=== PATIENT | female | born 1965 | race Caucasian/White ===

== ENCOUNTER 2024-02-29 08:54 | Emergency (ER) | payer OTHER ==
[2024-02-29 09:45] LABS: #Basophils 0.05 10x3/uL (0.0-0.2); #Eosinphils 0.37 10x3/uL (0.0-0.5); #Monocytes 0.52 10x3/uL (0.0-1.1); %Basophils 0.6 % (0.0-2.0); %Eosinophils 4.4 % (0.0-6.0); %Lymphocytes 29.2 % (18.0-47.0); %Monocytes 6.2 % (0.0-10.0); %Neutrophils 59.4 % (40.0-75.0); Hematocrit 34.5 % (34.9-44.5); Hemoglobin 10.7 g/dL (12.0-15.5); Mean Corpuscular Hemoglobin 29.8 pg (27.0-33.0); Mean Corpuscular Volume 96.1 fL (81.6-98.3); Mean Platelet Volume 8.6 fL (7.4-10.4); Platelet Count 291 10x3/uL (150-450); RBC Distribution Width 15.5 % (11.5-14.5); Red Blood Cell (RBC) Count 3.59 10x6/uL (3.90-5.03); White Blood Cell (WBC) Count 8.4 10x3/uL (3.5-10.5)
[2024-02-29 10:03] LABS: ALT (SGPT) 17 U/L (8-55); AST (SGOT) 20 U/L (5-34); Acetaminophen Less than 10 mcg/mL (Less than 10); Albumin 3.6 g/dL (3.5-5.0); Alcohol Less than 10.0 mg/dL (Less than 10); Alkaline Phosphatase 52 U/L (40-110); Anion Gap 13 mmol/L (10-20); BUN (Urea Nitrogen) 20 mg/dL (9.8-20.1); Bilirubin, Total 0.2 mg/dL (0.2-1.2); CK (CPK) 185 U/L (29-168); Calc. Creatinine Clearance 0 mL/min (70-130); Calcium 8.5 mg/dL (7.8-10.44); Carbon Dioxide 25 mmol/L (22-29); Chloride 106 mmol/L (98-107); Estimated GFR 85; Globulin 2.4 g/dL (2.4-3.5); Glucose 117 mg/dL (70-105); Potassium 3.7 mmol/L (3.5-5.1); Sodium 140 mmol/L (136-145)
[2024-02-29 11:03] LABS: Bilirubin 1+ (Negative); Blood, Urine Negative (Negative); Clarity Cloudy (Clear); Glucose, Urine (Dipstick) Normal (Negative); Ketone, Urine Negative (Negative); Leukocyte Negative (Negative); Nitrite Negative (Negative); Protein, Urine (Dipstick) 30 mg/dl (Neg-Trace); Specific Gravity, Urine 1.025 (1.005-1.030); Urobilinogen Normal mg/dL (Less than 2)
[2024-02-29 11:11] LABS: Amphetamine Not Detected (NotDetected); Barbiturates Screen Not Detected (NotDetected); Benzodiazepine Screen Not Detected (NotDetected); Cocaine Metabolite Screen Not Detected (NotDetected); Methadone Not Detected (NotDetected); Methamphetamine Not Detected (NotDetected); Opiate Screen Not Detected (NotDetected); Oxycodone Screen Not Detected (NotDetected); Phencyclidine (PCP) Not Detected (NotDetected); THC/Cannabinoid Screen Not Detected (NotDetected); Tricyclic Screen Not Detected (NotDetected)
[2024-02-29 11:25] LABS: Bacteria/HPF Rare-Few HPF (None Seen); CAUTI Indications for Culture Pelvic or flank pain; RBC/HPF None Seen HPF (0-3)
[2024-02-29 11:26] LABS: Calcium Oxalate Crystals 4+ HPF (None Seen)
[2024-02-29 11:27] LABS: Urine Culture Reflex No No
[2024-02-29] MEDS ORDERED: Ibuprofen 200 MG TAB ONE (14:25)
== END 2024-02-29 12:00 | disposition home or self-care (01) ==
LOC: CSHERS 08:54
DX: R41.0 Disorientation, unspecified (principal); R40.0 Somnolence
CPT/HCPCS: 36415; 70450; 80053; 80306; 80307; 81001; 82140; 82550; 85025; 93005

== ENCOUNTER 2024-02-29 14:11 | Inpatient (IN) | payer OTHER ==
[2024-02-29 16:17] LABS: Influenza A by NAA Not Detected (NotDetected); Influenza B by NAA Not Detected (NotDetected); SARS-CoV-2 NAA Rapid Test Not Detected (NotDetected)
[2024-02-29] MEDS ORDERED: Calcium Carbonate 500 MG ChewTAB PO PRN (19:22)
[2024-02-29] MEDS ORDERED: Senokot S 8.6-50 MG TAB PO PRN (19:22)
[2024-02-29] MEDS ORDERED: Acetaminophen 650 MG Suppository PR PRN (19:22)
[2024-02-29] MEDS ORDERED: Ondansetron PF 4 MG/2 ML Vial IVP PRN (19:22)
[2024-02-29] MEDS ORDERED: Lorazepam 2 MG/ML VIAL SLOW IVP PRN (19:25)
[2024-02-29] MEDS ORDERED: cefTRIAXone (ROCEPHIN) 2 GM VIAL ONE (21:30)
[2024-02-29] MEDS ORDERED: Magnesium Sulfate/D5W 1 GM/100 ML BAG ONE (21:30)
[2024-02-29] MEDS ORDERED: Potassium Chloride 20 MEQ TAB ONE (21:30)
[2024-02-29] MEDS: Magnesium Sulfate/D5W 1 GM/100 ML BAG IVPB SCH (22:10)
[2024-02-29] MEDS: Potassium Chloride 20 MEQ TAB PO SCH (22:13)
[2024-02-29] MEDS ORDERED: chlordiazePOXIDE HCl 5 MG CAP ONE (22:26)
[2024-02-29] MEDS ORDERED: Gabapentin 300 MG CAP ONE (22:27)
[2024-02-29] MEDS: chlordiazePOXIDE HCl 5 MG CAP PO SCH (22:50)
[2024-02-29] MEDS: Gabapentin 300 MG CAP PO SCH (22:53)
[2024-02-29] MEDS: cefTRIAXone\\ROCEPHIN 2 GM in Sodium Chloride 0.9% 100 ML IVPB SCH (23:10)
[2024-02-29] MEDS: Multivitamins, Adult 10 ML, Folic Acid 1 MG, Thiamine HCl 100 MG in Dextrose 5 %-0.45 %... IV SCH (23:35)
[2024-03-01 05:38] LABS: #Basophils 0.05 10x3/uL (0.0-0.2); #Eosinphils 0.31 10x3/uL (0.0-0.5); %Basophils 0.7 % (0.0-2.0); %Eosinophils 4.4 % (0.0-6.0); %Lymphocytes 35.7 % (18.0-47.0); %Monocytes 8.4 % (0.0-10.0); %Neutrophils 50.7 % (40.0-75.0); Hemoglobin 10.1 g/dL (12.0-15.5); Mean Corpuscular HGB CONC 30.6 g/dL (32.0-36.0); Mean Corpuscular Hemoglobin 29.2 pg (27.0-33.0); Mean Corpuscular Volume 95.4 fL (81.6-98.3); Mean Platelet Volume 8.5 fL (7.4-10.4); Platelet Count 244 10x3/uL (150-450); RBC Distribution Width 15.5 % (11.5-14.5); Red Blood Cell (RBC) Count 3.46 10x6/uL (3.90-5.03); White Blood Cell (WBC) Count 7.1 10x3/uL (3.5-10.5)
[2024-03-01 05:53] LABS: ALT (SGPT) 16 U/L (8-55); AST (SGOT) 18 U/L (5-34); Alkaline Phosphatase 39 U/L (40-110); Anion Gap 8 mmol/L (10-20); BUN (Urea Nitrogen) 14 mg/dL (9.8-20.1); Bilirubin, Total 0.2 mg/dL (0.2-1.2); CK (CPK) 85 U/L (29-168); Calc. Creatinine Clearance 0 mL/min (70-130); Calcium 7.9 mg/dL (7.8-10.44); Carbon Dioxide 26 mmol/L (22-29); Chloride 109 mmol/L (98-107); Estimated GFR 103; Globulin 2.2 g/dL (2.4-3.5); Glucose 104 mg/dL (70-105); Magnesium 1.9 mg/dL (1.6-2.6); Potassium 3.9 mmol/L (3.5-5.1); Protein, Total 5.2 g/dL (6.0-8.3); Sodium 139 mmol/L (136-145)
[2024-03-01] MEDS: Pantoprazole DR 40 MG TAB PO SCH (10:00)
[2024-03-01] MEDS: Enoxaparin 40 MG (0.4 mL) SYRINGE SC SCH (10:00)
[2024-03-01] MEDS: Magnesium 2 GM/50 ML(in water) 2 GM in Premix 1 BAG IVPB SCH (10:00)
[2024-03-01] MEDS: Escitalopram Oxalate 10 mg Tablet PO SCH (10:00)
[2024-03-01 10:37] VITALS: BMI 24.7
[2024-03-01] MEDS: Potassium Phosphate 30 MMOL in Sodium Chloride 0.9% 250 ML 250 ML IVPB SCH (11:36)
[2024-03-01 16:02] VITALS: BP 152/82; TEMP 99.5
[2024-03-01] MEDS: GUAIFENESIN SF SOLN 200 MG/10 ML UDCUP PO PRN (16:13)
[2024-03-01] MEDS ORDERED: Folic Acid 1 MG TAB PO SCH (21:00)
[2024-03-01] MEDS ORDERED: Thiamine 100 MG TAB PO SCH (21:00)
[2024-03-01] MEDS ORDERED: Multivit, Therapeutic 1 TAB PO SCH (21:00)
== END 2024-03-01 17:00 | disposition home or self-care (01) | DRG 71 ==
LOC: CSHERS 14:11 → CSHERHOLD 19:22 → CSHTELE 03-01 01:00
PROVIDERS: ADMIT Family Medicine; ATTEND Internal Medicine
DX: G93.49 Other encephalopathy (principal); F33.9 Major depressive disorder, recurrent, unspecified; R50.9 Fever, unspecified; E87.6 Hypokalemia; E83.42 Hypomagnesemia; E83.39 Other disorders of phosphorus metabolism; F10.20 Alcohol dependence, uncomplicated; F41.9 Anxiety disorder, unspecified; D64.9 Anemia, unspecified; Z79.899 Other long term (current) drug therapy
CPT/HCPCS: 36415; 70450; 70551; 71045; 80053; 80306; 80307; 81001; 82140; 82550; 82607; 83605; 83735; 84100; 84145; 84425; 85025; 86140; 87040; 87081; 87086; 87430; 93005; J0696; J1650; J3411; J3475; J7042; J7050